=== PATIENT | female | born 1985 | race Caucasian/White ===

== ENCOUNTER 2018-09-22 06:35 | Inpatient (IN) | payer OTHER ==
[~2018-09-22] VITALS: Ht 162.6 cm; Wt 3.6 kg
[~2018-09-22 06:35] MED LIST: DOCUSATE SODIU100 MG PO; Mylicon 125MG PO; NAPROXEN SODIU550 MG PO; OXYC1TAB9 PO; PRENATAL CAPSU1 EACH; PRENATE ADVANCE PO; ZITHROMAX500 MG PO; ZOFRAN4 MG
[2018-09-23] MEDS ORDERED: RHOGAM ULTR1500 UNIT IM (08:03)
[2018-09-24] MEDS ORDERED: PERCOCET 5-3251 EACH PO (08:40)
== END 2018-09-24 12:34 | disposition home or self-care (01) | DRG 787 ==
LOC: LDR 06:35 → O/R 08:35 → OB/GYN 10:13
PROVIDERS: Obstetrics & Gynecology
PROC: 4A1HXCZ Monitoring of Products of Conception, Cardiac Rate, External Approach (ICD-10-PCS; 2018-09-22)
PROC: 4A033R1 Measurement of Arterial Saturation, Peripheral, Percutaneous Approach (ICD-10-PCS; 2018-09-22)
PROC: 10D00Z1 Extraction of Products of Conception, Low, Open Approach (ICD-10-PCS; principal; 2018-09-22 07:00)
DX: O64.0XX0 Obstructed labor due to incomplete rotation of fetal head, not applicable or unspecified (principal); O99.12 Other diseases of the blood and blood-forming organs and certain disorders involving the immune mechanism complicating childbirth; O34.211 Maternal care for low transverse scar from previous cesarean delivery; D69.49 Other primary thrombocytopenia; O62.0 Primary inadequate contractions; O75.82 Onset (spontaneous) of labor after 37 completed weeks of gestation but before 39 completed weeks gestation, with delivery by (planned) cesarean section; Z3A.37 37 weeks gestation of pregnancy; Z37.0 Single live birth